=== PATIENT | female | born 1975 | race Two or more races ===

== ENCOUNTER 2019-03-27 13:12 | Emergency (ER) | payer OTHER ==
[2019-03-27 13:35] LABS: ABS Lymphocytes 1.1 10^3/ul (1.0-4.8); ABS Monocytes 0.7 10^3/ul (0-0.8); ABS Neutrophils 5.6 10^3/ul (1.5-7.7); Eosinophil % 0.5 %; Hematocrit 39 % (35-47); Hemoglobin 13.1 g/dL (12.0-16.0); Lymphocyte % 14.3 %; Mean Corpuscular HGB Conc 33 g/dL (31-36); Mean Corpuscular Hemoglobin 27 pg (27-31); Mean Corpuscular Volume 81 fL (80-97); Nucleated Red Blood Cells % 0.1; Platelet Count 234 10^3/uL (150-450); Red Blood Count 4.81 10^6 /uL (3.70-4.87); Red Cell Distribution Width 16 % (10-15); White Blood Count 7.4 10^3/uL (3.5-10.8)
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
[2019-03-27 13:54] LABS: ALT 15 U/L (7-52); AST 18 U/L (13-39); Albumin 4.3 g/dL (3.2-5.2); Albumin/Globulin Ratio 1.3 (1-3); Alkaline Phosphatase 48 U/L (34-104); Anion Gap 10 mmol/L (2-11); BUN/Creatinine Ratio 6.8 (8-20); Blood Urea Nitrogen 8 mg/dL (6-24); CO2 Carbon Dioxide 21 mmol/L (22-32); Chloride 105 mmol/L (101-111); EGFR African American 61.1 (>60); EGFR Non-African American 50.5 (>60); Globulin 3.4 g/dL (2-4); Glucose 107 mg/dL (70-100); Sodium 136 mmol/L (135-145); Total Protein 7.7 g/dL (6.4-8.9)
[2019-03-27 13:59] LABS: HCG Pregnancy < 0.60 mIU/mL
--- OUTSIDE RECORDS SUMMARY | 2019-03-27 14:21 | XMS REPORT ---
:1975 Author Organization [facility] Care Team Providers Name Role Phone Saschawilfrid Elaine Primary Care Physician Unavailable Allergies, Adverse Reactions, Alerts Allergy Code CodeSystem Reaction Severity Criticality Status Start Substance Date Moderate Medications Medication Medication Medication Start Stop Route Dose Status Fill Code CodeSystem Date Date Instructions bupropion HCl 199208 RxNorm 2019- oral 150 mg completed for 30 09-01 tablet day(s) extended release 24 hr Viibryd 0838791 RxNorm 2019- oral 40 mg completed for 30 05-31- tablet day(s) bupropion HCl 156155 RxNorm 2019- oral 300 mg completed for 30 05-31 tablet day(s) extended release 24 hr Viibryd 7947601 RxNorm 2019- oral 40 mg completed for 30 09-01 tablet day(s) aripiprazole 887038 RxNorm 2019- oral 10 mg completed for 30 05-31- tablet day(s) bupropion HCl 449389 RxNorm 2019- oral 150 mg active for 30 11-30 tablet day(s) extended release 24 hr bupropion HCl 820526 RxNorm 2019- oral 300 mg 1 completed Take 1 tablet 09-01 tablet every extended morning for release 30 day(s) 24 hr every morning bupropion HCl 617146 RxNorm 2019- oral 300 mg 1 active Take 1 tablet 11-30 tablet every extended morning for release 30 day(s) 24 hr every morning aripiprazole 685021 RxNorm 2019- oral 10 mg completed for 30 09-01 tablet day(s) aripiprazole 028558 RxNorm 0 2019- oral 10 mg 1 active Take 1 tablet 11-30 tablet once a day once a for 30 day(s) day bupropion HCl 137528 RxNorm 2018- oral 150 mg completed for 05-31 tablet day(s) extended release 24 hr Viikirilld 5572813 RxNorm 2018- oral 40 mg 1 active 1 tablet 12-06 tablet once a day once a for 30 day(s) day Problems Problem Name Code CodeSystem Alternate Alternate Start End Status Narrative Code CodeSystem Date Date Tobacco use 27203924 SNOMED-CT Active 6- Unspecified 17576987 SNOMED-CT Active anxiety 07-03 disorder Relevant diagnostic tests/laboratory data Narrative No Information Procedures Procedure Code CodeSystem Target Date of Status Service Device Device Device Name Site Procedure Delivery Code Name UID Location Psychotherap 508196 SNOMED-CT () 2018-07-05 complete Mental y, 47 04 d Health- minutes with [facility] patient [address], [id number] [id number] Psychotherap [id number] SNOMED-CT () 2019-01-04 complete Mental y, 45 04 d Health- minutes with [facility] patient [address], [id number] Psychotherap [id number] SNOMED-CT () 2018-10-25 complete Mental y, 45 04 d Health- minutes with [facility] patient [address], [id number] Psychotherap [id number] SNOMED-CT () 2018-10-11 complete Mental y, 45 04 d Health- minutes with [address], [id number] Psychotherap [id number] SNOMED-CT () 2018-08-09 complete Mental y, 45 04 d Health- minutes with [facility] patient [address], [id number] [id number] Psychotherap [id number] SNOMED-CT () 2018-08-30 complete Mental y, 45 04 d Health- minutes with [address], [id number] [phone] Office or [id number] SNOMED-CT () 2018-09-21 complete Mental other 7 d Health- outpatient [facility] visit for [address], established [id number] patient, [id number] which requires at least 2 of these 3 acuña components: An expanded problem focused history; An expanded problem focused examination; Medical decision making of low Office or 709914 SNOMED-CT () 2018-12-21 complete Mental other 7 d Health- outpatient [facility] visit for [address], established [id number] patient, [id number] which requires at least 2 of these 3 acuña components: An expanded problem focused history; An expanded problem focused examination; Medical decision making of low Office or 407502 SNOMED-CT () 2018-07-27 complete Mental other 8 d Health- outpatient [facility] visit for [address], established [id number] patient, [id number] which requires at least 2 of these 3 acuña components: A detailed history; A detailed examination; Medical decision making of moderate complexity. Counseling and/o SNOMED-CT () 2018-09-28 complete Mental d [address], [id number] [phone] SNOMED-CT () 2018-10-04 complete Mental d [address], [id number] SNOMED-CT () 2018-11-09 complete Mental d [address], [id number] SNOMED-CT () 2018-11-23 complete Mental d [address], [id number] SNOMED-CT () 2018-12-21 complete Mental d [address], [id number] [id number] SNOMED-CT () 2019-02-01 complete Mental d [address], [id number] [id number] Encounters/Encounter Diagnoses Encounter Name Encounter Diagnosis Diagnosis Diagnosis Date of Service Code Code Name CodeSystem Diagnosis Delivery Location Psychotherapy - 77776 SNOMED-CT 2019-02-01 Behavioral [facility] [address] [place], [place], [phone] Vital Signs No Information Social History Element Description Description Start End Code CodeSystem AdditionalInfo Date Date SexAssignedAtBirth Female F AdministrativeGender 08-28 Hospital Discharge Instructions Reason For Referral Medical Equipment FDA Assessments
[2019-03-27 15:02] VITALS: BP 128/82
== END 2019-03-27 15:01 | disposition home or self-care (01) ==
LOC: ED 13:12
DX: S09.90XA Unspecified injury of head, initial encounter (principal); W18.09XA Striking against other object with subsequent fall, initial encounter; Y92.009 Unspecified place in unspecified non-institutional (private) residence as the place of occurrence of the external cause; F17.200 Nicotine dependence, unspecified, uncomplicated; Z79.899 Other long term (current) drug therapy; Z88.5 Allergy status to narcotic agent
CPT/HCPCS: 36415; 70450; 80053; 84702; 85025; 93005; 99283